=== PATIENT | male | born 2005 | race Caucasian/White ===

== ENCOUNTER 2024-12-09 21:22 | Emergency (ER) | payer MEDICAID, OTHER ==
[~2024-12-09] VITALS: Ht 160 cm; Wt 71.8 kg
[2024-12-10] MEDS ORDERED: SULF473O10 PO (01:54)
[2024-12-10 02:00] VITALS: BP 123/71; PULSE 100; RESP 18; TEMP 98.1; O2SAT 100
[2024-12-10] MEDS ORDERED: SULFAMETHOX/TRIMETH 800-160 MG/20 ML SUSPENSION ORAL SYRINGE PO ONE (02:00)
[2024-12-10] MEDS ORDERED: IBUPROFEN 100 MG/5 ML SUSPENSION UDCUP PO ONE (02:00)
== END 2024-12-10 05:41 | disposition home or self-care (01) ==
LOC: EMS 21:28
DX: K61.0 Anal abscess (principal); K62.89 Other specified diseases of anus and rectum
CPT/HCPCS: 99283